=== PATIENT | female | born 1960 | race Hispanic/Latino ===

== ENCOUNTER 2020-04-13 12:49 | Emergency (ER) | payer SELFPAY ==
[2020-04-13 13:36] LABS: Absolute Lymphocytes (CBC) 2.2 K/uL (0.7-4.9); Basophils % 0.5 % (0-1.3); Hematocrit 45.3 % (36.0-45.0); Lymphocytes % 27.1 % (15.3-44.8); MPV 7.8 fL (7.6-11.3); RBC Red Blood Cell Count 4.96 M/uL (3.86-4.86)
[2020-04-13 13:38] LABS: Protime INR 0.87
[2020-04-13 14:03] LABS: ALT/SGPT 69 U/L (12-78); AST/SGOT 32 U/L (15-37); Albumin 4.5 g/dL (3.4-5.0); Alkaline Phosphatase 89 U/L (45-117); BUN Blood Urea Nitrogen 15 mg/dL (7-18); Bicarbonate 29 mmol/L (21-32); Bilirubin Direct 0.1 mg/dL (0-0.2); Bilirubin Total 0.4 mg/dL (0.2-1.0); Glucose Level 128 mg/dL (74-106); Magnesium 2.5 mg/dL (1.8-2.4); NT PRO-BNP 45 pg/mL (<125); Potassium 4.4 mmol/L (3.5-5.1); Protein, Total 8.6 g/dL (6.4-8.2); Sodium Level 142 mmol/L (136-145); Troponin (Emerg Dept Use Only) < 0.02 ng/mL (0.0-0.045)
[2020-04-13] MEDS ORDERED: KETOROLAC 30 MG/ML INJ ONE (15:24)
--- NOTE | 2020-04-13 15:48 | RAD REPORT ---
EXAM DESCRIPTION: RAD - Chest Single View - 04/13/2020 3:33 pm CLINICAL HISTORY: CHEST PAIN Chest pain. COMPARISON: No comparisons FINDINGS: Portable technique limits examination quality. The lungs are grossly clear. The heart is normal in size. No displaced fractures. IMPRESSION: No acute intrathoracic process suspected.
--- NOTE | 2020-04-13 18:51 | ER ---
Nurse's Notes [facility] Name: Marcela Min Age: 59 yrs Sex: Female : 1960 Arrival Date: 04/13/2020 Time: 12:52 Bed 2 Private MD: Diagnosis: Chest pain, unspecified Presentation: 04/13 13:03 Chief complaint: Patient states: pain from posterior left shoulder, int mid chest, also iw has numbness tingling in left arm and headache X 2 days, constant, hasn't been able to sleep for past couple nights. Coronavirus screen: At this time, the client does not indicate any symptoms associated with coronavirus-19. Ebola Screen: Patient negative for fever greater than or equal to 101.5 degrees Fahrenheit, and additional compatible Ebola Virus Disease symptoms Patient denies exposure to infectious person. Patient denies travel to an Ebola-affected area in the 21 days before illness onset. No symptoms or risks identified at this time. Onset of symptoms was April 11, 2020. 13:03 Method Of Arrival: Ambulatory iw 13:05 Initial Sepsis Screen: Does the patient meet any 2 criteria? No. Patient's initial iw sepsis screen is negative. Does the patient have a suspected source of infection? No. Patient's initial sepsis screen is negative. Risk Assessment: Do you want to hurt yourself or someone else? Patient reports no desire to harm self or others. 13:05 Acuity: MARIVEL 2 iw Historical: - Allergies: 13:04 No Known Allergies; iw - Home Meds: 13:04 None [Active]; iw - PMHx: 13:04 None; iw - PSHx: 13:04 ; Hysterectomy; Cholecystectomy; iw - Immunization history:: Adult Immunizations up to date. - Social history:: Smoking status: Patient denies any tobacco usage or history of. Patient uses Patient/guardian denies using alcohol, street drugs, The patient lives with family. - Family history:: not pertinent. Screenin:01 Abuse screen: Denies threats or abuse. Denies injuries from another. Nutritional iw screening: No deficits noted. Tuberculosis screening: No symptoms or risk factors identified. Fall Risk None identified. IV access (20 points). Assessment: 13:05 General: Appears in no apparent distress. Behavior is calm, cooperative. Pain: iw Complains of pain in left scapular area and left subscapular area Pain radiates to chest Pain currently is 4 out of 10 on a pain scale. at worst was 10 out of 10 on a pain scale. Pain began 2-3 days ago. Is continuous. Neuro: Level of Consciousness is awake, alert, obeys commands, Oriented to person, place, time, situation, Moves all extremities. Full function. Cardiovascular: Reports chest pain, Patient's skin is warm and dry. Respiratory: Respiratory effort is even, unlabored, Respiratory pattern is regular, symmetrical. GI: No signs and/or symptoms were reported involving the gastrointestinal system. Derm: Skin is intact, is healthy with good turgor. Musculoskeletal: Range of motion: intact in all extremities. 14:26 Reassessment: Patient appears in no apparent distress at this time. Patient and/or iw family updated on plan of care and expected duration. Pain level reassessed. Patient is alert, oriented x 3, equal unlabored respirations, skin warm/dry/pink. updated on lab results. 15:15 General: Appears in no apparent distress. comfortable, well developed, Behavior is sv calm, cooperative, appropriate for age. Pain: Complains of pain in left subscapular area, anterior aspect of left upper chest and left breast Pain currently is 8 out of 10 on a pain scale. Quality of pain is described as sharp, Pain began 2-3 days ago. Is intermittent, episodic. Neuro: Level of Consciousness is awake, alert, obeys commands, Oriented to person, place, time, situation, Moves all extremities. Full function Gait is steady. Respiratory: Respiratory effort is even, unlabored, Respiratory pattern is regular, symmetrical. Derm: Skin is pink, warm \T\ dry. Musculoskeletal: Range of motion: intact in all extremities. 17:49 Reassessment: Patient appears in no apparent distress at this time. Patient and/or sv family updated on plan of care and expected duration. Pain level reassessed. Patient is alert, oriented x 3, equal unlabored respirations, skin warm/dry/pink. Vital Signs: 13:05 BP 160 / 101; Pulse 83; Resp 16; Temp 97.8; Pulse Ox 100% on R/A; Weight 74.84 kg; iw Height 5 ft. 6 in. (167.64 cm); Pain 8/10; 15:45 BP 165 / 92; Pulse 76 MON; Resp 17; Pulse Ox 98% on R/A; sv 16:45 BP 142 / 98; Pulse 70 MON; Resp 18; Pulse Ox 97% on R/A; sv 17:41 BP 173 / 93; Pulse 72; Resp 20; Pulse Ox 99% ; sv 18:15 BP 188 / 99; Pulse 60 MON; Resp 13; Pulse Ox 98% on R/A; sv 19:17 BP 176 / 89; Pulse 71; Resp 17; Temp 98; Pulse Ox 98% on R/A; rv 13:05 Body Mass Index 26.63 (74.84 kg, 167.64 cm) iw 15:45 Sinus Rhythm sv 16:45 Sinus Rhythm sv 18:15 Sinus Rhythm sv ED Course: 12:52 Patient arrived in ED. rg4 13:04 Arm band placed on. iw 13:05 Triage completed. iw 13:25 Inserted saline lock: 20 gauge in right antecubital area, using aseptic technique. iw Patient maintains SpO2 saturation greater than 95% on room air. 14:51 Washington Guadalupe MD is Attending Physician. ma2 15:02 Farzana Winchester, RN is Primary Nurse. sv 15:03 Basic Metabolic Panel Sent. sv 15:04 LFT's Sent. sv 15:04 Magnesium Sent. sv 15:04 NT PRO-BNP Sent. sv 15:04 PT-INR Sent. sv 15:04 Troponin (emerg Dept Use Only) Sent. sv 15:04 XRAY Chest (1 view) Sent. sv 15:04 X-ray(s) taken. sv 15:20 Patient has correct armband on for positive identification. Placed in gown. Bed in low sv position. Call light in reach. Adult w/ patient. code and test clerk on. Pulse ox on. NIBP on. 15:33 XRAY Chest (1 view) In Process Unspecified. EDMS 15:40 Urine --Ancillary (enter results) Sent. sv 15:40 Urine Dipstick--Ancillary (enter results) Sent. sv 15:50 COVID-19 Sent. sv 17:40 Repeat lab(s) drawn. by ED staff, sent to lab. sv 18:31 Troponin I Sent. sv 18:32 Troponin I: re-draw blood at 1730 please Sent. sv 19:10 Primary Nurse role handed off by Farzana Winchester DELLA mw2 19:10 Report given to Connor HULL and Slick HULL. sv 19:17 Slick Cowan, RN is Primary Nurse. rv 19:18 No provider procedures requiring assistance completed. IV discontinued, intact, rv bleeding controlled, No redness/swelling at site. Pressure dressing applied. Administered Medications: 15:26 Drug: TORadol 30 mg Route: IVP; Site: right antecubital; sv 16:29 Follow up: Response: No adverse reaction sv 19:17 Drug: [place] 10 mg-325 mg 1 tabs {Note: rass 0.} Route: PO; rv 19:17 Follow up: Response: Medication administered at discharge. rv Outcome: 18:50 Discharge ordered by . ia2 19:18 Discharged to home ambulatory. rv 19:18 Condition: good 19:18 Discharge instructions given to patient, Instructed on discharge instructions, follow up and referral plans. medication usage, Demonstrated understanding of instructions, follow-up care, medications, Prescriptions given X 1. 19:18 Patient left the ED. rv Addendum: 04/15/2020 10:15 Addendum: COVID-19 Result: Negative result given to RN to notify pt. Attempted to i w contact pt regarding negative COVID-19 swab results. Left voice mail. Signatures: Dispatcher [employer] EDMS Farzana Winchester, Niesha Gutiérrez RN, RN RN iw Garcia, Rubi rg4 Washington Guadalupe MD MD ma2 Sarah Meneses mw2 Silck Cowan RN RN rv
--- NOTE | 2020-04-13 18:51 | EDPHYS ---
Physician Documentation [facility] Name: Marcela Min Age: 59 yrs Sex: Female : 1960 Arrival Date: 04/13/2020 Time: 12:52 Bed 2 Private MD: ED Physician Washington Guadalupe HPI: 04/13 16:08 This 59 yrs old Female presents to ER via Ambulatory with complaints of Chest ma2 Pain, Back Pain, Arm Pain, Dizziness, Headache. 16:08 The patient or guardian reports chest pain that is located primarily in the left ma2 lateral posterior chest. Onset: gradually, 2 day(s) ago. Associated signs and symptoms: Pertinent negatives: cough, dizziness, lower extremity pain, lightheadedness, nausea. Severity of pain: At its worst the pain was moderate in the emergency department the pain is unchanged. The patient has not experienced similar symptoms in the past. left sided sohulder pain and posterior chest that is been constant and worse with deep breath and movement . Historical: - Allergies: 13:04 No Known Allergies; iw - Home Meds: 13:04 None [Active]; iw - PMHx: 13:04 None; iw - PSHx: 13:04 ; Hysterectomy; Cholecystectomy; iw - Immunization history:: Adult Immunizations up to date. - Social history:: Smoking status: Patient denies any tobacco usage or history of. Patient uses Patient/guardian denies using alcohol, street drugs, The patient lives with family. - Family history:: not pertinent. ROS: 16:08 Constitutional: Negative for fever, chills, and weight loss. ma2 16:08 All other systems are negative. Exam: 16:08 Constitutional: This is a well developed, well nourished patient who is awake, alert, ma2 and in no acute distress. Head/Face: Normocephalic, atraumatic. Eyes: Pupils equal round and reactive to light, extra-ocular motions intact. Lids and lashes normal. Conjunctiva and sclera are non-icteric and not injected. Cornea within normal limits. Periorbital areas with no swelling, redness, or edema. ENT: Nares patent. No nasal discharge, no septal abnormalities noted. Tympanic membranes are normal and external auditory canals are clear. Oropharynx with no redness, swelling, or masses, exudates, or evidence of obstruction, uvula midline. Mucous membranes moist. Neck: Trachea midline, no thyromegaly or masses palpated, and no cervical lymphadenopathy. Supple, full range of motion without nuchal rigidity, or vertebral point tenderness. No Meningismus. Chest/axilla: Normal chest wall appearance and motion. Nontender with no deformity. No lesions are appreciated. Cardiovascular: chest pain is reproducible with palpation, Regular rate and rhythm with a normal S1 and S2. No gallops, murmurs, or rubs. Normal PMI, no JVD. No pulse deficits. Respiratory: Lungs have equal breath sounds bilaterally, clear to auscultation and percussion. No rales, rhonchi or wheezes noted. No increased work of breathing, no retractions or nasal flaring. Abdomen/GI: Soft, non-tender, with normal bowel sounds. No distension or tympany. No guarding or rebound. No evidence of tenderness throughout. MS/ Extremity: Pulses equal, no cyanosis. Neurovascular intact. Full, normal range of motion. Neuro: Awake and alert, GCS 15, oriented to person, place, time, and situation. Cranial nerves II-XII grossly intact. Motor strength 5/5 in all extremities. Sensory grossly intact. Cerebellar exam normal. Normal gait. Vital Signs: 13:05 BP 160 / 101; Pulse 83; Resp 16; Temp 97.8; Pulse Ox 100% on R/A; Weight 74.84 kg; iw Height 5 ft. 6 in. (167.64 cm); Pain 8/10; 15:45 BP 165 / 92; Pulse 76 MON; Resp 17; Pulse Ox 98% on R/A; sv 16:45 BP 142 / 98; Pulse 70 MON; Resp 18; Pulse Ox 97% on R/A; sv 17:41 BP 173 / 93; Pulse 72; Resp 20; Pulse Ox 99% ; sv 18:15 BP 188 / 99; Pulse 60 MON; Resp 13; Pulse Ox 98% on R/A; sv 19:17 BP 176 / 89; Pulse 71; Resp 17; Temp 98; Pulse Ox 98% on R/A; rv 13:05 Body Mass Index 26.63 (74.84 kg, 167.64 cm) iw 15:45 Sinus Rhythm sv 16:45 Sinus Rhythm sv 18:15 Sinus Rhythm sv MDM: 14:51 Patient medically screened. [facility] 16:08 Differential diagnosis: gastritis, gastroesophageal reflux disease (GERD), pleurisy, ma2 pneumonia. HEART Score: History: Slightly Suspicious (0), ECG: Normal (0), Age: > 45 and < 65 years (1), Risk Factors: No Risk Factors Known (0), Troponin: < or = 1 x Normal Limit (0), Total Score = 1. The patient was not given aspirin in the Emergency Department. Patient reports taking aspirin within the past 24 hours. SIMON Risk Score: TOTAL SCORE = 0. Data reviewed: vital signs, nurses notes, EMS record. Counseling: I had a detailed discussion with the patient and/or guardian regarding: the historical points, exam findings, and any diagnostic results supporting the discharge/admit diagnosis, the presence of at least one elevated blood pressure reading (>120/80) during this emergency department visit, the need for outpatient follow up. 04/13 13:10 Order name: Basic Metabolic Panel 04/13 13:10 Order name: CBC with Diff; Complete Time: 14:54 04/13 13:10 Order name: PT-INR 04/13 13:10 Order name: Basic Metabolic Panel; Complete Time: 14:54 EDMS 04/13 13:39 Order name: Protime (+INR); Complete Time: 14:54 EDMS 04/13 14:54 Order name: COVID-19 [facility] 04/13 15:30 Order name: Urine Dipstick--Ancillary (enter results) 04/13 15:30 Order name: Urine --Ancillary (enter results) 04/13 16:16 Order name: Troponin I: re-draw blood at 1730 please [facility] 04/13 17:00 Order name: CORONAVIRUS; Complete Time: 17:57 EDMS 04/13 13:10 Order name: XRAY Chest (1 view); Complete Time: 16:05 04/13 13:10 Order name: EKG; Complete Time: 13:10 04/13 13:10 Order name: Cardiac monitoring; Complete Time: 15:39 04/13 13:10 Order name: EKG - Nurse/Tech; Complete Time: 13:25 04/13 13:10 Order name: IV Saline Lock; Complete Time: 13:25 04/13 13:10 Order name: Labs collected and sent; Complete Time: 13:25 04/13 13:10 Order name: O2 Per Protocol; Complete Time: 15:39 04/13 13:10 Order name: O2 Sat Monitoring; Complete Time: 15:39 04/13 18:17 Order name: Troponin I; Complete Time: 18:50 EDMS Administered Medications: 15:26 Drug: TORadol 30 mg Route: IVP; Site: right antecubital; sv 16:29 Follow up: Response: No adverse reaction sv 19:17 Drug: [place] 10 mg-325 mg 1 tabs {Note: rass 0.} Route: PO; rv 19:17 Follow up: Response: Medication administered at discharge. rv Disposition: 04/13/20 18:50 Discharged to Home. Impression: Chest pain, unspecified. - Condition is Stable. - Discharge Instructions: Nonspecific Chest Pain. - Prescriptions for Diclofenac Sodium 75 mg Oral Tablet Sustained Release - take 1 tablet by ORAL route 2 times per day; 30 tablet. - Medication Reconciliation Form, Thank You Letter, Antibiotic Education, Prescription Opioid Use form. - Follow up: Private Physician; When: Tomorrow; Reason: Continuance of care. Signatures: Dispatcher [employer] Farzana Rudolph RN RN sv Williams, Irene, RN RN Washington Guadalupe MD MD ma2 Slick Cowan RN RN rv Corrections: (The following items were deleted from the chart) 19:18 18:50 04/13/2020 18:50 Discharged to Home. Impression: Chest pain, unspecified. rv Condition is Stable. Discharge Instructions: Nonspecific Chest Pain. Prescriptions for Diclofenac Sodium 75 mg Oral Tablet Sustained Release - take 1 tablet by ORAL route 2 times per day; 30 tablet. and Forms are Medication Reconciliation Form, Thank You Letter, Antibiotic Education, Prescription Opioid Use. Follow up: Private Physician; When: Tomorrow; Reason: Continuance of care. ma2
[2020-04-13] MEDS ORDERED: HYDROCODONE/APAP 10/325 TAB ONE (19:26)
[2020-04-13 20:34] LABS: Urine Blood 1+ (NEG); Urine Glucose NEGATIVE (NEG); Urine Protein NEGATIVE (NEG); Urine Specific Gravity 1.015 (1.005-1.030)
--- NOTE | 2020-04-14 11:00 | EKG ---
Test Date: 2020-04-13 Test Time: 13:13:20 Primary [employer] Roller: JULIANNE MEASUREMENT RESULTS: Intervals: Rate: 72 ND: 160 QRSD: 80 QT: 394 QTc: 431 Spruce: P: 49 ND: 160 QRS: -46 T: 62 INTERPRETIVE STATEMENTS: Normal sinus rhythm Possible Left atrial enlargement Low voltage QRS Left anterior fascicular block Inferior infarct, age undetermined Cannot rule out Anterior infarct, age undetermined Abnormal ECG No previous ECG available for comparison Electronically Signed On 04-14-20 10:56:37 STUDENT LIAISON OFFICER by Afshin Khan
== END 2020-04-13 19:18 | disposition home or self-care (01) ==
LOC: ER 12:49
DX: R07.9 Chest pain, unspecified (principal); Z20.828 Contact with and (suspected) exposure to other viral communicable diseases
CPT/HCPCS: 36415; 71045; 80048; 80076; 81003; 81025; 83735; 83880; 84484; 85025; 85610; 93005; 96374; 99285; U0002